=== PATIENT | male | born 1955 | race Two or more races ===

== ENCOUNTER 2023-05-25 03:44 | Day surgery (SDC) | payer OTHER ==
[2023-05-19 11:58] VITALS: BMI 26.0
[2023-05-25 06:24] VITALS: RESP 18
[2023-05-25] MEDS ORDERED: MIDAZOLAM HCL 2 MG/2 ML SINGLE DOSE VIAL ONE (08:15)
[2023-05-25] MEDS ORDERED: ONDANSETRON 4 MG/2 ML VIAL ONE (08:22)
[2023-05-25] MEDS: ceFAZolin SODIUM 1 GM VIAL IVPB ONE (08:26)
[2023-05-25] MEDS ORDERED: ceFAZolin SODIUM 1 GM VIAL ONE (08:26)
[2023-05-25] MEDS ORDERED: PROPOFOL 20 ML ONE (08:39)
[2023-05-25 08:57] VITALS: BP 128/70; PULSE 78; TEMP 98.4
== END 2023-05-25 09:37 | disposition home or self-care (01) ==
LOC: JASU-SURG 03:44
PROVIDERS: ATTEND Urology
PROC: 0TF4XZZ Fragmentation in Left Kidney Pelvis, External Approach (ICD-10-PCS; principal; 2023-05-25 08:00)
DX: N20.0 Calculus of kidney (principal)
CPT/HCPCS: 82962